=== PATIENT | male | born 1965 | race Caucasian/White ===

== ENCOUNTER 2016-07-28 06:35 | Day surgery (SDC) | payer OTHER, BC ==
[~2016-07-28] VITALS: Ht 182.9 cm; Wt 90.3 kg
[~2016-07-28 06:35] MED LIST: ACET325T10
--- NOTE | 2016-07-28 06:45 | NUR ---
PROVIDER DR. IBARRA IN ROOM WITH PT.
[2016-07-28] MEDS ORDERED: NO DAILY MEDS (06:53)
--- NOTE | 2016-07-28 06:55 | ERPDOC ---
Departure Disposition Decision Date: Jul 28, 2016 Disposition Decision Time: 08:30 Disposition: 02 TO [facility] Impression Impression Impression: Primary Impression: Traumatic amputation of left index finger Severity: Moderate Condition: Improved Seen By: Physician only Referrals: LEONARD GONZALEZ II, MD (Family) Problems/Meds/Labs Reviewed?: Yes Medications reviewed and manag: Yes Follow up care ordered?: Yes Mental Status: Alert, Oriented Scripts Cephalexin (Keflex) 500 Mg Capsule 1 CAP PO QID, #28 CAP Prov: RANDA MADRIGAL 07/28/16 Ondansetron HCl (Zofran) 4 Mg Tablet 4 MG PO Q6H Y for NAUSEA, #10 TAB Prov: RANDA MADRIGAL 07/28/16 Hydrocodone/Acetaminophen (Hardy 7.5-325 Tablet) 7.5-325 Tablet 1-2 TAB PO Q4HR Y for PAIN, #60 TAB Prov: RANDA MADRIGAL 07/28/16 HPI - Upper Extremity General Chief Complaint: Upper Extremity Injury Stated Complaint: LAC TO L INDEX FINGER Time Seen by MD: 06:39 Source: patient Exam Limitations: no limitations HPI - Upper Extremity Initial Comments 51-year-old male presents to the emergency department with a chief complaint of an injury to the index finger on the left hand. 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 Pain is sharp. Pain is moderate. There is no radiation of pain. Patient was at work when the symptoms began. Symptoms have been persistent in nature since onset with improvement with direct pressure which improved the patient's bleeding. Patient denies any other injuries. No other complaints or associated symptoms. Patient is not anticoagulated. He is unsure of the date of his last tetanus vaccine. Occurred At: work Onset/Timing: Constant Allergies: Coded Allergies: No Known Allergies (Verified , 07/28/16) Past History Past Medical History Pt denies signifigant PMH Surgical History Denies Surgeries Family History Family History: Negative Vaccines Hx Influenza Vaccination: No Hx Pneumococcal Vaccination: No Social History Smoking Status: Never smoker Substance Use Type: does not use Alcohol Intake: none Review of Systems Constitutional Constitutional: DENIES: chills, fever Eyes General: DENIES: erythema, exudate Lids/Accessories: DENIES: erythema, swelling Vision: DENIES: acuity, blurring ENMT Ears: DENIES: drainage, erythema, pain Hearing: DENIES: hearing loss Balance: DENIES: ataxia, falling to one side Sinuses: DENIES: congestion, pain Nose: DENIES: nosebleeds, pain Mouth/Throat: DENIES: painful swallowing, sore throat Teeth: DENIES: pain Jaw: DENIES: pain Cardiovascular Cardiac: DENIES: chest pain, dyspnea on exertion Rhythm/Rate: DENIES: irregular beat, palpitations Vascular: DENIES: pedal edema, unilateral swelling Pulmonary Respiratory: DENIES: cough, dyspnea, sputum GI Lower Abdomen: DENIES: diarrhea, pain General: DENIES: dysuria, pain Musculoskeletal General: pain, tenderness Integumentary Skin: DENIES: itching, rash Neurological General: DENIES: headache, numbness, weakness Psychiatric Psychiatric: DENIES: nervousness, suicidal ideation/attempt Endocrine Endocrine: DENIES: polydipsia, polyphagia Hematologic/Lymphatic Hematologic/Lymphatic: DENIES: bleeding gums, frequent nosebleeds Allergic/Immunological Allergic/Immunoligical: DENIES: frequent infections, hives Physical Exam General General Nourishment: well nourished, well developed, appears stated age, no acute distress, adult General Body Habitus: well groomed Vitals and Pain First Documented Vital Signs Date Time Temp Pulse Resp B/P Pulse Ox O2 Delivery O2 Flow Rate FiO2 07/28/16 06:38 97.7 79 16 169/85 98 Room Air Weight: Kilograms: 98.200 Height (feet): 6 Height (inches): 0 Triage Pain Scale: RN VS reviewed by Provider: Yes Normal Exams: Head: Normocephalic w/o trauma Eyes: Pupils are PERRLA w/ EOMI, No scleral icterus, irritation, or foreign bodies noted ENMT: No facial trauma, nasal exudates, pharyngeal erythema, or exudates are noted Dental: No fractured, loose, or missing teeth noted Neck: Full range of motion, without adenopathy, JVD, bruits or thyromegaly Chest/Resp: Clear all corbin, with good airflow, and symmetry bilaterally CV: Regular rate and rhythm, without murmur or gallop, Pulses 2+ all extremities, capillary refill, <2 seconds all ext., no pedal edema noted Abdomen: Bowel sounds positive, soft, non-tender, non-distended, no hepatosplenomegaly, masses or bruits noted Lymphatic: No lymphadenopathy, or lymphedema noted Integumentary: No rashes, hives, or bruising noted, hair and nails, without abnormality Neurologic: Patient is alert, and oriented, cranial nerves, motor/sensory/ cerebellar, exams w/o gross deficits, to observation Psychiatric: Patient exhibits, appropriate attention, emotion and affect Musculoskeletal (brief) Comments L Hand - left index finger with traumatic amputation of distal digit from the distal nail bed proximally. Scant ooze of active bleeding stopped with direct pressure. Distal bone fragment is exposed. Sensation is intact. Capillary refill less than 2. Pulses are intact. No other tenderness in the left upper extremity. No other complaints or associated symptoms. No erythema or edema. All other extremities are unremarkable. Differential Diagnoses Considering: Amputation, Fingernail Avulsion, Fracture, Trauma Progress Results/Orders Orders Procedure Category Date Status Time Hand Left 3 View RAD 07/28/16 Resulted 06:48 Tetanus,Diphth,A PHA 07/28/16 Complete Pertus (Tdap) (Adacel) 07:00 Fentanyl (Fentanyl) PHA 07/28/16 Complete 07:00 Ondansetron Inj PHA 07/28/16 Complete (Zofran) 07:00 Cbc W/Auto LAB 07/28/16 Complete Diff-Reflex Manual Bmp - Basic Metabolic LAB 07/28/16 Complete Panel EKG EKG 07/28/16 Taken Chest 1 View RAD 07/28/16 Resulted 07:58 Ceftriaxone I.V. (Er PHA 07/28/16 Complete Use Only) (Rocephin 08:00 Npo Now GEOVANNA 07/28/16 Complete 08:09 Npo: Nothing By Mouth DIET 07/28/[address] In Facility As: ADMIT 07/28/16 Transmitted 08:25 Measure Vital Signs GEOVANNA 07/28/16 Complete 08:00 Manage Oxygen GEOVANNA 07/28/16 Complete Administration 08:25 Compression Type Scd/ GEOVANNA 07/28/16 Complete Butch Hose 08:25 Consent For Procedure GEOVANNA 07/28/16 Complete 08:25 Normal Saline (Normal PHA 07/28/16 Complete Saline Iv) 08:25 Cefazolin (Kefzol) PHA 07/28/16 Complete 08:30 Hydromorphone PHA 07/28/16 Complete (Dilaudid) 08:30 Ondansetron Inj PHA 07/28/16 Complete (Zofran) 08:30 Ondansetron Inj PHA 07/28/16 Complete (Zofran) 08:30 Oxygen, Continuous RT 07/28/16 Logged 08:25 Place In Facility: ED ADM 07/28/16 Transmitted Lab Results Laboratory Tests Test 07/28/16 08:07 White Blood Count 5.5T/MM3 Red Blood Count 4.86M/MM3 Hemoglobin 14.9GM/DL Hematocrit 43.0% Mean Corpuscular Volume 88.5UM3 Mean Corpuscular Hemoglobin 30.7UUG Mean Corpuscular Hemoglobin Concent 34.7GM/DL RDW Standard Deviation 40.0FL Platelet Count 220T/MM3 Mean Platelet Volume 12.0UM3 Immature Granulocyte % (Auto) 0.0% Neutrophils (%) (Auto) 61.4% Lymphocytes (%) (Auto) 24.1% Monocytes (%) (Auto) 6.9% Eosinophils (%) (Auto) 6.9% Basophils (%) (Auto) 0.7% Absolute Immature Granulocyte (auto 0.00T/MM3 Absolute Neutrophils (auto) 3.4T/MM3 Absolute Lymphocytes (auto) 1.3T/MM3 Absolute Monocytes (auto) 0.4T/MM3 Absolute Eosinophils (auto) 0.4T/MM3 Absolute Basophils (auto) 0.0T/MM3 Turbidity < 20 Sodium Level 144MEQ/L Potassium Level 4.1MEQ/L Chloride Level 107MEQ/L Carbon Dioxide Level 25MEQ/L Anion Gap 12MEQ/L Blood Urea Nitrogen 18.0MG/DL Creatinine 0.7MG/DL Glomerular Filtration Rate Calc 118 BUN/Creatinine Ratio 26RATIO Glucose Level 103MG/DL Calculated Osmolality 279MOSM/KG Calcium Level 9.4MG/DL Icterus Index < 2 Chemistry Specimen Hemolysis < 15 Medications Current ED Medications Diphtheria/ Tetanus/Acell Pertussis (Adacel) 0.5 ml O ONCE IM Last administered on 07/28/16 07:05; Start 07/28/16 at 07:00; Stop 07/28/16 at 07:01; Status DC Fentanyl (Fentanyl) 50 mcg O ONCE IV Last administered on 07/28/16 07:00; Start 07/28/16 at 07:00; Stop 07/28/16 at 07:01; Status DC Ondansetron HCl 4 mg 4 mg O ONCE IV Last administered on 07/28/16 07:01; Start 07/28/16 at 07:00; Stop 07/28/16 at 07:01; Status DC Ceftriaxone Sodium 1 g/Sodium Chloride 100 ml @ 100 mls/hr O ONCE IV Last administered on 07/28/16 08:31; Start 07/28/16 at 08:00; Stop 07/28/16 at 08:59; Status DC Sodium Chloride (Normal Saline IV) 1,000 ml @ 80 mls/hr [id number] IV Last administered on 07/28/16 08:31; Start 07/28/16 at 08:25; Stop 07/28/16 at 13:46; Status DC Cefazolin Sodium (Kefzol) 2 g PREOP ONCE IV Last administered on 07/28/16 12: 00; Start 07/28/16 at 08:30; Stop 07/28/16 at 09:48; Status DC Hydromorphone HCl (Dilaudid) 0.5-1 mg IV Q1H PRN pain Q1H PRN IV PAIN; Start at 08:30; Stop 07/28/16 at 13:46; Status DC Ondansetron HCl (Zofran) 4 mg Q6H PRN IV NAUSEA &/OR VOMITING; Start 07/28/16 at 08:30; Stop 07/28/16 at 13:46; Status DC Ondansetron HCl (Zofran) 4 mg PREOP PRN IV NAUSEA &/OR VOMITING; Start 07/28/16 at 08:30; Stop 07/28/16 at 13:46; Status DC Progress Progress Labs/imaging is discussed in detail with the patient and questions are answered. Patient is given IV hydration. Patient is given parental narcotic and antiemetic medications intravenously with improvement of symptoms. Patient' s tetanus status is updated. Patient's wound is irrigated copiously in the emergency department. Sterile dressing is placed. Patient is given Rocephin 1 g intravenously 1. Patient is discussed in detail with the orthopedic surgeon hr business partner consultant Dr. Cox who is in agreement with the current plan of management. Patient is admitted to the service of Dr. Cox for further evaluation and treatment of the distal finger amputation. No further orders from accepting physician who is in agreement with the current plan of management. Patient is admitted to the hospital in improved condition. Patient is in agreement with the current plan of management. EKG EKG : Rate: 60-100 Rhythm: sinus Brickeys: normal QRS: normal Intervals: normal ST/T: normal Interpreted by: signing physician Xray Xray : Xray: Hand L Interpretation: Abnormal, Interpreted by Me (L index finger distal phalange open fracture. chest x-ray: Negative) MACARIO IBARRA DO Jul 28, 2016 06:54
[2016-07-28] MEDS ORDERED: FENTANYL 100mcg/2ml INJECTION IV ONE ×2 (07:00→09:15)
[2016-07-28] MEDS ORDERED: ONDANSETRON 4mg/2ml INJECTION IV ONE (07:00)
[2016-07-28] MEDS ORDERED: TETANUS,DIPHTH,a PERTUS (Tdap) 0.5 ML VIAL IM ONE (07:00)
--- NOTE | 2016-07-28 07:10 | NUR ---
XRAY XRAY IN ROOM WITH PT.
[2016-07-28] MEDS ORDERED: CEFTRIAXONE I.V. (ER USE ONLY) 1 G in NORMAL SALINE 100 ML IV ONE (08:00)
--- NOTE | 2016-07-28 08:05 | NUR ---
EKG EKG TAKEN AND GIVEN TO DR IBARRA
--- NOTE | 2016-07-28 08:10 | NUR ---
PROVIDER/LIVERMO[place] DR. HERNANDEZ IN ROOM WITH PT.
--- NOTE | 2016-07-28 08:15 | NUR ---
VERBAL ORDER 50 MCG OF FENTANYL IV PER DR. IBARRA.
[2016-07-28 08:21] LABS: BASOPHILS % (AUTO) 0.7 % (0-2); EOSINOPHILS # (AUTO) 0.4 T/MM3 (0-0.5); EOSINOPHILS % (AUTO) 6.9 % (0-4); HGB - HEMOGLOBIN 14.9 GM/DL (13.5-17.5); LYMPHOCYTES # (AUTO) 1.3 T/MM3 (1-4.8); LYMPHOCYTES % (AUTO) 24.1 % (23-45); MEAN CORPUSCULAR HGB 30.7 UUG (26-34); MEAN CORPUSCULAR HGB CONC(MCHC 34.7 GM/DL (31-37); MEAN CORPUSCULAR VOLUME 88.5 UM3 (80-100); MONOCYTES # (AUTO) 0.4 T/MM3 (0-0.8); MONOCYTES % (AUTO) 6.9 % (0-9.0); NEUTROPHILS #(AUTO)-ABSOLUTE 3.4 T/MM3 (1.8-7.7); NEUTROPHILS % (AUTO) 61.4 % (33-66); RED BLOOD COUNT 4.86 M/MM3 (4.50-5.90); WBC - WHITE BLOOD COUNT 5.5 T/MM3 (4.5-11.0)
[2016-07-28] MEDS ORDERED: NORMAL SALINE 1,000 ML IV SCH (08:25)
[2016-07-28 08:29] LABS: ANION GAP 12 MEQ/L (5-15); BUN/CREATININE RATIO 26 RATIO (6-26); CALCIUM 9.4 MG/DL (8.4-10.2); CHLORIDE 107 MEQ/L (98-107); CO2 - CARBON DIOXIDE 25 MEQ/L (22-30); CREATININE 0.7 MG/DL (0.8-1.5); GLOMERULAR FILTRATION RATE 118; GLUCOSE 103 MG/DL (75-110); POTASSIUM 4.1 MEQ/L (3.6-5); SODIUM 144 MEQ/L (134-144)
--- NOTE | 2016-07-28 08:29 | DI ---
Indication: ITS.REASON: post-op PROCEDURE: CHEST 1 VIEW: Encounter: Initial Comparison: None Findings: A single frontal view of the chest demonstrates no evidence of pneumonic infiltrate, pleural fluid, cardiomegaly, or hilar contour abnormality. There is normal pulmonary vasculature and the trachea is midline. Visualized bony elements intact. Impression: Negative for acute chest disease. .
[2016-07-28] MEDS ORDERED: HYDROMORPHONE 2mg/ml INJECTION IV PRN (08:30)
[2016-07-28] MEDS ORDERED: ONDANSETRON 4mg/2ml INJECTION IV PRN ×3 (08:30→13:15)
[2016-07-28] MEDS ORDERED: CEFAZOLIN 2 GM VIAL IV ONE (08:30)
--- NOTE | 2016-07-28 08:30 | DI ---
Indication: ITS.REASON: 51-year-old male Index finger injury PROCEDURE: HAND LEFT 3 VIEW: Encounter: Initial Comparison: None Findings: There has been amputation of the distal aspect of the tuft of the distal phalanx of the index finger in an oblique orientation with amputation of the overlying soft tissues. A dressing has been applied. No fracture extension to the distal interphalangeal joint articular cortex. Impression: Amputation of the distal aspect of the tuft of the index finger and overlying soft tissues. .
--- NOTE | 2016-07-28 08:50 | HPPDOC ---
Ortho HPI HPI Elements Location: FOUND fingers (Left Index finger tip ) Injury: Yes (@0600, [employer] Employee) Pain: FOUND stabbing, FOUND sharp, FOUND throbbing, FOUND radiating Onset: Sudden Radiating: Yes Severity: FOUND moderate Duration: FOUND 1-6 hours Previous Surgery: No Previous Injury: No Aggrevated by: FOUND pushing, FOUND pulling, FOUND all activity Associated Symptoms: NOT FOUND fever, NOT FOUND chills, FOUND numbness Treatments Tried: FOUND pain medications X-ray Findings: FOUND other (Traumatic soft tissue loss and distal phalanx tuft fx with bone loss) Recommendation: FOUND other (Recommend urgent I&D with revision of traumatic amputation and primary closure.) HPI 51 yo male employee at [employer] injured @0600 when he was placing a pin in a combine head/chain assembly. Was using a come-along in the right hand and manipulating the pin with the left. The chain shifted and the pin fell on his gloved left hand. Patient pulled his hand away leaving the glove and tip of the finger behind. Brought to [facility]. Tetanus updated. Given 1g Rocephin. Cursory washout by ER MD. Pain medication given. at bedside. Denies other injury. RHD. Last at solids at 2000 last evening. Had some black coffee/ water at 0600 this morning. Past Medical History Adult Surgical History Patient's Surgical History: Skin Cancer removal Current Medications [No Daily Meds] , (Reported) Last Taken: UNKNOWN on Unknown Date & Time Allergies Allergies: Coded Allergies: No Known Allergies (Verified Allergy, Unknown, 02/24/08) Vaccines No 2013 Social History Smoking Status: Current every day smoker (5 cigs) Does patient use chewing tobac: No Substance Use Type: does not use Alcohol Intake: none Marital Status: Sexuality: female partner Housing: house Current Occupational Status: employed Current Occupation: Labor, [employer] Review of Systems Constitutional: DENIES: chills, dizziness, fever, weakness Cardiovascular DENIES: chest pain, dyspnea on exertion, orthopnea Rhythm/Rate: DENIES: irregular beat, palpitations Vascular: DENIES: atrophy, pallor of an extremity Pulmonary Respiratory: DENIES: cough, dyspnea, sputum GI Upper Abdomen: DENIES: heartburn/indigestion, nausea, vomiting Lower Abdomen: DENIES: constipation, diarrhea General: DENIES: frequency, pain, urgency Musculoskeletal General: other, see HPI, tenderness Integumentary Skin: see HPI, DENIES: infections, sores Nails: see HPI Neurological General: DENIES: headache, numbness, weakness Psychiatric Psychiatric: DENIES: anxiety, depression Endocrine DENIES: heat/cold intolerance All Other Systems Reviewed (remainder of 10-point ROS Neg.) Physical Exam General General: well nourished, well developed, no acute distress Respiratory FOUND non-labored, FOUND wheezes Cardiovascular FOUND regular rate, FOUND regular rhythm Capillary Refill: <2 sec Abdomen Abdominal: FOUND soft, NOT FOUND distended, NOT FOUND tender Musculoskeletal Musculoskeletal : Side: Left (Index Fingertip) Comments Left index fingertip amputated with exposed distal phalanx bone. Laceration is oblique from dorsal proximal at the level of the nail bed to volar and distal. No pulsatile bleeding. TTP. Able to flex/extend DIPJ and PIPJ. Remainder of hand exam WNL. Musculoskeletal Brief: FOUND: tenderness Integumentary FOUND dry, FOUND pink, FOUND warm Integumentary Comments See above regarding hand lac Neurologic FOUND intact to light touch, FOUND no deficits Psychiatric FOUND alert, FOUND attentive, FOUND normal affect, FOUND oriented Laboratory Laboratory Tests Test 07/28/16 08:07 White Blood Count 5.5T/MM3 Red Blood Count 4.86M/MM3 Hemoglobin 14.9GM/DL Hematocrit 43.0% Mean Corpuscular Volume 88.5UM3 Mean Corpuscular Hemoglobin 30.7UUG Mean Corpuscular Hemoglobin Concent 34.7GM/DL RDW Standard Deviation 40.0FL Platelet Count 220T/MM3 Mean Platelet Volume 12.0UM3 Immature Granulocyte % (Auto) 0.0% Neutrophils (%) (Auto) 61.4% Lymphocytes (%) (Auto) 24.1% Monocytes (%) (Auto) 6.9% Eosinophils (%) (Auto) 6.9% Basophils (%) (Auto) 0.7% Absolute Immature Granulocyte (auto 0.00T/MM3 Absolute Neutrophils (auto) 3.4T/MM3 Absolute Lymphocytes (auto) 1.3T/MM3 Absolute Monocytes (auto) 0.4T/MM3 Absolute Eosinophils (auto) 0.4T/MM3 Absolute Basophils (auto) 0.0T/MM3 Turbidity Pending Sodium Level Pending Potassium Level Pending Chloride Level Pending Carbon Dioxide Level Pending Anion Gap Pending Blood Urea Nitrogen Pending Creatinine Pending Glomerular Filtration Rate Calc Pending BUN/Creatinine Ratio Pending Glucose Level Pending Calculated Osmolality Pending Calcium Level Pending Icterus Index Pending Chemistry Specimen Hemolysis Pending Radiology Radiology See HPI Assessment & Plan Problems: (1) Traumatic amputation of left index finger Status: Acute Assessment & Plan: Discussed the findings with the patient and his . Tetanus booster and initial antibiotics initiated. Recommend going to the OR for I&D with revision of the traumatic amputation and closure. Discussed shortening of the digit and bone while hoping to save the DIPJ. Will be admitted as an outpatient. Discussed the technique, rehabilitation, recuperation, and timeframes for recovery. Discussed the risks, benefits, alternatives, and potential complications of surgery including infection, skin flap necrosis, possibility of additional surgery and digit loss. Off work at this time until follow up. All questions were answered. MAU LLAMAS MD Jul 28, 2016 08:33
--- NOTE | 2016-07-28 09:38 | NUR ---
REPORT REPORT GIVEN TO [facility] AT [facility].
--- NOTE | 2016-07-28 09:50 | NUR ---
DEPART ED/SURGERY CENTER STAFF FROM SUR[facility]ERY CENTER ARE TAKING PT PER WHEELCHAIR AT THIS TIME. PT'S HAS PERSONAL BELONGINGS WITH HER AND IS AWARE PT'S TRANSFER.
[2016-07-28 09:51] VITALS: Ht 182.9 cm; Wt 90.3 kg
[2016-07-28] MEDS ORDERED: FENTANYL 100mcg/2ml INJECTION IV PRN ×2 (10:15→13:15)
[2016-07-28] MEDS ORDERED: NAPR220C11 PO (10:21)
[2016-07-28 10:22] VITALS: BP 128/76; PULSE 64; RESP 16; TEMP 97.6; O2SAT 97
[2016-07-28] MEDS ORDERED: MULT-933 PO (10:22)
[2016-07-28 10:37] VITALS: TEMP 97.8
--- NOTE | 2016-07-28 11:59 | ANESPREOP ---
Anesthesia Record Date and Time DATE: 07/28/16 TIME: 11:57 Pre-Op Diagnosis traumatic amputation left index finger Proposed Surgical Procedure revision amputation left index finger NPO since: 050 Allergies: Coded Allergies: No Known Allergies (Verified , 07/28/16) Ht/Wt/BMI Height: 6 ' 0.00 " Weight: 90.300 kg BMI: 27.0 kg/m2 Vital Signs Date Time Temp Pulse Resp B/P Pulse Ox O2 Delivery O2 Flow Rate FiO2 07/28/16 10:37 97.8 07/28/16 10:22 64 16 128/76 97 Room Air Medications Inpatient Medications Current Medications Medications (Trade) Dose Ordered Sig/Earl Start Time Stop Time Status Last Admin Dose Admin Sodium Chloride (Normal Saline IV) 1,000 ml @ 80 mls/hr [id number] 07/28/16 08:25 07/28/16 08:31 80 MLS/HR Hydromorphone HCl (Dilaudid) 0.5-1 mg IV Q1H PRN pain Q1H PRN 07/28/16 08:30 Ondansetron HCl (Zofran) 4 mg Q6H PRN 07/28/16 08:30 Ondansetron HCl (Zofran) 4 mg PREOP PRN 07/28/16 08:30 Fentanyl (Fentanyl) FENTANYL 50-100 MCG PRN PAIN PRN PRN 07/28/16 10:15 07/28/16 12:15 07/28/16 10:24 50 MCG Multivitamin (Multi-Day Vitamins) 1 Each Tablet, 1 TAB PO DAILY, (Reported) Last Taken: on 07/28/16 0500 Naproxen Sodium (Aleve) 220 Mg Capsule, 220 MG PO BIDWM, (Reported) Last Taken: on 07/28/16 0500 [No Daily Meds] , (Reported) Last Taken: on Unknown Date & Time Currently on Beta Irving: No Medical/Surgical History Anesthesia PMH: Reports: Arthritis (hands), Asthma (NO INHALORS), COPD, Cancer (SKIN 2 YRS AGO), Denies: *Diabetes, CVA/Stroke/TIA, Clotting Problems, Glaucoma , Headaches, Seizures, Sleep Apnea, Thyroid Disease Smoking Status: Current every day smoker (5 cigs) Has pt. smoked today?: Yes Use Chewing Tobacco?: No Substance Use Type: does not use Alcohol Intake: none Past Surgical History Orthopedic Surgeries: No Abdominal Surgeries: No Genitourinary Surgeries: No Cardiac Surgeries: No Endocrine Surgeries: No Reproductive Surgeries: Neurological Surgeries: No Ear Surgeries: No Nose Surgeries: No Throat Surgeries: Yes - TONSILS Other Surgeries: Yes - SKIN CA Anesthesia Adverse Reactions: FOUND none Pertinent Findings Laboratory Tests 07/28/16 08:07 EKG Rhythm: Sinus Rhythm Physical Exam Respiratory: Lungs clear Cardiovascular: FOUND Regular rate, rhythm, FOUND No murmur Airway Assessment Mallampati Score: I TMD: 3 Fingerbreadths Neck Extension: Good Teeth: Chipped Teeth/Crowns Overall Assessment: No Airway Concerns ASA: 2 Plan Anesthesia Plan: TIVA, LMA Discussion Discussed risks/options/alternatives of anesthesia and questions answered. Patient consents. Nursing pain assessment noted. Present: Spouse Attestation Statement Prior to the delivery of any anesthetic medication, I examined the patient, developed the plan, obtained the patient's consent and discussed the risk and benefits of the procedure with the patient/guardian. MURIEL SIMMONS I TRANSPORTATION DISPATCH MANAGER Jul 28, 2016 11:59
[2016-07-28] MEDS ORDERED: LIDOCAINE JELLY 2% 30ml TUBE ONE (12:06)
[2016-07-28] MEDS ORDERED: PROPOFOL 500mg 50 ML IV ONE ×2 (12:06→12:26)
[2016-07-28 12:55] VITALS: BP 101/52; PULSE 64; RESP 16; TEMP 97.4; O2SAT 98
[2016-07-28] MEDS ORDERED: ONDA4TAB4 PO (12:58)
[2016-07-28] MEDS ORDERED: HYDR-347 PO (12:58)
--- NOTE | 2016-07-28 13:04 | PD.WORK ---
Work Release DATE: 07/28/16 TIME: 13:02 Work Release Excused for: 07/28/16 absence due to surgery May return to work on: Jul 29, 2016 Restrictions: No use of the left hand. Must keep the dressing and hand clean and dry. May not drive while on narcotics. May resume normal activity on: Jul 28, 2016 (after review at follow up.) RANDA MADRIGAL Jul 28, 2016 13:03
[2016-07-28] MEDS ORDERED: CEPH-583 PO (13:07)
[2016-07-28 13:10] VITALS: BP 112/61; PULSE 61; RESP 18; O2SAT 98
[2016-07-28 13:25] VITALS: BP 114/63; PULSE 60; RESP 18; TEMP 97.4; O2SAT 98
[2016-07-28 13:37] VITALS: BP 127/67; PULSE 62; RESP 17; O2SAT 97
--- NOTE | 2016-07-28 13:42 | ANESPO ---
Post-Op Note Date 07/28/16 Time: 13:41 Status Pt Participated in Evaluation: Pt participated by phone Vital Signs Date Time Temp Pulse Resp B/P Pulse Ox O2 Delivery O2 Flow Rate FiO2 07/28/16 13:37 62 17 127/67 97 Room Air 07/28/16 13:25 97.4 07/28/16 12:55 6.00 Respiratory Function: Airway patent, Regular respirations Cardiovascular Function: Regular pulse Mental Status: Alert/oriented Pain Level Intensity: 0 Unable to Assess Pain Due To: Medicated/Sleeping Hydration: Taking po fluids Complications during Recovery None apparent Follow-Up Instructions Instructions Per Surgeon MURIEL SIMMONS CRNA Jul 28, 2016 13:41
--- NOTE | 2016-07-28 21:09 | OPNOTEF ---
DATE OF SURGERY 07/28/2016 PREOPERATIVE DIAGNOSIS Traumatic left index finger amputation at the level of distal phalanx. POSTOPERATIVE DIAGNOSIS Traumatic left index finger amputation at the level of distal phalanx. PROCEDURE Left index finger irrigation, debridement and revision amputation left index finger. SURGEON Trey Cox MD MAT ROLLER Timothy Murray PA-C ANESTHESIA TIVA with digital nerve block. FLUIDS Please refer to Anesthesia chart. EBL Minimal. TOURNIQUET Finger tourniquet was used for less than 15 minutes. COMPLICATIONS None. CONDITION Stable in recovery room. INDICATIONS Mr. Nina is a 51-year-old male employee of [employer] who sustained a traumatic injury to his left index finger about 0600 hours this morning. His hand got pinched in a pin on a nahun when it shifted. The pin smashed the tip of his finger. He did have a glove on. He pulled his hand back quickly, leaving the glove and the tip of the finger behind. Dressings were applied. He was brought to [facility] ER. X-rays were obtained showing loss of bone of the tuft of the distal phalanx. Tetanus booster was administered. He received IV antibiotics. A cursory washout was performed by the ER physician. Sterile dressings were applied. I saw the patient in the ER and he was admitted to outpatient surgery for revision amputation, irrigation and debridement. DESCRIPTION OF PROCEDURE The patient was identified in the preoperative holding area. The operative extremity was identified and appropriately marked. Risks, benefits, alternatives and potential complications were discussed and informed consent was obtained. The patient was taken to the operating theatre and placed supine on the operating table. Appropriate cardiorespiratory monitors were applied. TIVA anesthesia was administered. A tourniquet was applied high on the left arm though not inflated. Left upper extremity was then sterilely prepped and draped in the usual fashion. Surgical time-out was performed, confirmed with myself, the embedded software architect and circulating nurse. Preoperative antibiotics had been given. The metacarpal head was palpated volarly. A 22-gauge needle was then inserted and approximately 4-5 mL of 0.25% Marcaine without epinephrine were injected along the tendon sheath and to the medial and lateral borders of the metacarpal head to provide a digital nerve block. This was allowed to set for a couple of moments. Following this, a piece of Esmarch was utilized to exsanguinate the finger down to the level of the metacarpophalangeal joint where it was clamped off, providing a finger tourniquet. The wound and traumatic portion of the amputation were then inspected. The patient had lost the entire nail and had an oblique type loss of bone at the distal phalanx at the tuft. The laceration itself extended from just distal to the eponychial fold and then was obliquely oriented as it moved volar and distal. He had lost 4-5 mm of the very tip of the soft tissue as well. There was no pulsatile bleeding. At this time the wound was copiously irrigated with 500 mL of saline. Attention was then turned towards debridement of any nonviable tissue and skin. There was still some of the nail matrix present. This was elevated from the eponychial fold superiorly with a Delaplane elevator. It was then sharply elevated off of the phalanx and sharply excised. The edge of the eponychial fold was then sharply incised, removing approximately 1-2 mm of skin to provide a healing surface. A periosteal elevator was then used to elevate the soft tissue off of the distal phalanx both medially, laterally, volarly and dorsally as there was not enough soft tissue to cover this remnant of bone. A rongeurs were then used to remove bone back to where we felt comfortable that the soft tissue flap could go over the top of the remnant of bone. This was not an amputation through the joint. Additional irrigation was performed at this time. The volar flap was then pulled into its proposed position and rotated dorsally. Multiple interrupted 4-0 nylon sutures were inserted. Prior to placement of the sutures the tourniquet was deflated. There was no significant bleeding requiring significant cautery use, primarily just soft tissue oozing. All tissue appeared to be viable. Upon closure with the nylon we inspected the volar flap. He had mildly delayed capillary refill but it was felt to be viable and not under too much tension. At this time the hand was dressed with Xeroform gauze, multiple layers of soft tissue sponges and finally overwrapped with an Luis Daniel bandage. The arm was placed in a cradle boot for elevation. The patient was awakened from anesthesia and taken to the recovery room in stable and satisfactory condition. EVANS
== END 2016-07-28 13:46 | disposition home or self-care (01) ==
LOC: ED 06:35 → SCU 08:40 → NSC 13:46
PROVIDERS: ATTEND Orthopaedic Surgery
DX: S68.121A Partial traumatic metacarpophalangeal amputation of left index finger, initial encounter (principal); W31.82XA Contact with other commercial machinery, initial encounter; Y93.89 Activity, other specified; Y92.89 Other specified places as the place of occurrence of the external cause; Y99.0 Civilian activity done for income or pay; Z79.899 Other long term (current) drug therapy; F17.210 Nicotine dependence, cigarettes, uncomplicated
CPT/HCPCS: 26951; 71010; 73130; 80048; 85025; 90471; 90715; 99284; A6222; J0690; J0696; J2405; J3010; J7030; J7050; 93005